=== PATIENT | male | born 1995 | race Two or more races ===

== ENCOUNTER → 2024-11-17 | Emergency (ER) | payer MEDICAID, OTHER ==
[~2024-11-17] VITALS: Ht 172.7 cm; Wt 84.0 kg
[2024-11-17 16:58] VITALS: BP 132/82; PULSE 84; RESP 16; TEMP 97.7; O2SAT 97
== END | disposition left against medical advice (07) ==
LOC: ER 16:55
DX: M79.641 Pain in right hand (principal); R22.31 Localized swelling, mass and lump, right upper limb; Z53.21 Procedure and treatment not carried out due to patient leaving prior to being seen by health care provider